=== PATIENT | female | born 1985 | race Caucasian/White ===

== ENCOUNTER 2022-11-11 13:00 | Emergency (ER) | payer MEDICARE, SELFPAY ==
[2022-11-11] VITALS (9 sets, daily range): BP systolic 120–155; BP diastolic 65–84; PULSE 54–69; RESP 16–18; TEMP 37.2; O2SAT 98–100
--- NOTE | 2022-11-11 13:36 | ED_ITS ---
HPI - Nausea/Vomiting/Diarrhea General Chief complaint: Nausea/Vomiting/Diarrhea Stated complaint: Nausea/Vomiting Time Seen by Provider: 11/11/22 13:11 Source: patient and EMS Mode of arrival: EMS History of Present Illness HPI Narrative: Patient is a 37-year-old female who recently had a cross-country trip. She states that when she returned home she started have acute episodes of vomiting. No diarrhea. Is unable to tolerate anything by mouth. This is going on for the past 24-48 hours. No fevers. Does have some abdominal pain but this is associated with the vomiting. No skin rashes. No fevers. She did receive a L of fluid and Zofran by EMS prior to arrival. States the Zofran did help her symptoms somewhat. Related Data Previous Rx's Medication Instructions Recorded ondansetron 4 mg disintegrating 4 mg PO Q6H PRN nausea and 11/11/22 tablet vomiting #14 tabs Allergies Allergy/AdvReac Type Severity Reaction Status Date / Time latex Allergy Intermediate Hives Verified 11/11/22 13:20 Review of Systems Constitutional Constitutional: Reports system reviewed and no additional complaints, except as documented Gastrointestinal Gastrointestinal: Reports system reviewed and no additional complaints, except as documented Genitourinary Genitourinary: Reports system reviewed and no additional complaints, except as documented Integumentary/Breasts Skin/Breast: Reports system reviewed and no additional complaints, except as documented Patient History Social History Smoking Status: Current every day smoker Smoking Status: Current every day smoker tobacco type: cigarettes alcohol intake frequency: other Substance Use Type: does not use Exam Initial Vital Signs Initial Vital Signs: Vital Signs Temperature 99.0 F 11/11/22 13:08 Pulse Rate 57 L 11/11/22 13:08 Respiratory Rate 16 11/11/22 13:08 Blood Pressure 140/68 11/11/22 13:08 Pulse Oximetry 98 11/11/22 13:08 Oxygen Delivery Method Room Air 11/11/22 13:08 HENMT Head: normal to inspection and normocephalic Resp Effort & Inspection: normal respiratory effort Cardio Rate: regular rate GI Inspection: non-distended Neuro General: patient alert, patient awake and moves all extremities Course Orders Ordered: ED Orders 11/11/22 13:17 Consult to [employer] Stat Discontinued Medications Sodium Chloride (Normal Saline 0.9%) 1,000 mls @ 1,000 mls/hr IV BOLUS ONE Stop: 11/11/22 14:10 Last Admin: 11/11/22 13:51 Dose: 1,000 mls/hr Documented By: NADJA Metoclopramide HCl (Metoclopramide 10 Mg/2 Ml Inj) 10 mg IV NOW ONE Stop: 11/11/22 13:36 Last Admin: 11/11/22 13:52 Dose: 10 mg Documented By: NADJA Ondansetron HCl (Ondansetron 4 Mg/2 Ml Inj) 4 mg IV NOW ONE Stop: 11/11/22 13:12 Last Admin: 11/11/22 14:56 Dose: Not Given Documented By: SAM Vital Signs Vital signs: Vital Signs - 8 hr 11/11/22 13:08 11/11/22 13:12 11/11/22 13:30 Temperature 99.0 F Pulse Rate 57 L 57 L 56 L Respiratory Rate 16 18 18 Blood Pressure 140/68 140/68 142/77 H Pulse Oximetry 98 98 98 Oxygen Delivery Method Room Air Room Air 11/11/22 14:00 11/11/22 14:21 11/11/22 14:30 Temperature Pulse Rate 54 L 57 L 54 L Respiratory Rate 18 18 18 Blood Pressure 136/76 138/82 155/84 H Pulse Oximetry 98 99 100 Oxygen Delivery Method Room Air Room Air MDM - Nausea/Vomiting/Diarrhea Lab Data Labs: Point of Care Testing Test Results Negative Urine Dip Bedside Urine Glucose Negative Bedside Urine Bilirubin + 1 Bedside Urine Ketone ++ 40 Urine Specific [place] 1.025 Bedside Urine Occult Blood + Bedside Urine pH 6.0 Bedside Urine Protein + 30 Bedside Urine Urobilinogen - Negative Bedside Urine Nitrite - Negative Bedside Urine Leukocytes +/- 15 Esterase MDM Narrative Medical decision making narrative: Patient does have a benign abdomen with good bowel sounds. Soft abdomen. Was able to tolerate a small amount of liquids and was having some nausea but no vomiting. Received fluids. No urinary symptoms. No indication for radiologic studies. test is negative. Will discharge patient home with symptom treatment for her nausea. She was given return precautions. She expressed understanding and agreement. Discharge Plan Departure Patient Disposition: Home Clinical Impression: Nausea and vomiting Instructions: Nausea and Vomiting-Adult Activity Restrictions/Additional Instructions: Use the nausea medication as needed. Be sure that you were trying to increase your fluid intake by drinking small amounts more frequently. Also recommend a bland diet. Return to the emergency department for new symptoms. Prescriptions: New ondansetron 4 mg tablet,disintegrating 4 mg PO Q6H PRN (Reason: nausea and vomiting) Qty: 14 0RF Referrals: Miscellaneous,Doctor, MD [Primary Care Provider] - Stand Alone Forms: Patient Portal/API
[2022-11-11] MEDS: SODIUM CHLORIDE 0.9% 1,000 ML 1000 ML IV (13:51)
[2022-11-11] MEDS: METOCLOPRAMIDE 10 MG/2 ML INJ IV (13:52)
== END 2022-11-11 16:03 | disposition home or self-care (01) ==
PROVIDERS: Emergency Provider Emergency Medicine
DX: R11.2 Nausea with vomiting, unspecified (principal)
CPT/HCPCS: 81003; 81025; 96361; 96374; 99283; 99284; J2765

== ENCOUNTER 2024-09-27 13:35 | Emergency (ER) | payer MEDICARE, SELFPAY ==
[2024-09-27 13:57] VITALS: BP 164/84; PULSE 70; RESP 18; TEMP 36.5; O2SAT 100
[2024-09-27] MEDS: HYDROCODONE/ACET 5/325 TABLET 1 TAB PO (14:11)
--- NOTE | 2024-09-27 14:14 | ED_ITS ---
<Statement entered by Kevin Anthony, DO - 09/27/24 17:48> Co-sign statement: I was available for consultation during this patient's emergency department visit. Discharge is signed by myself for administrative purposes only. I do not have direct contact with this patient during this visit. They were seen independently by the [facility]. HPI - Dental/Oral General Chief complaint: Dental/Oral Stated complaint: Mouth infection post 2 teeth abstraction; in pain Time Seen by Provider: 09/27/24 13:45 Source: patient Mode of arrival: Ambulatory History of Present Illness HPI Narrative: Ms. Zuniga is a pleasant 39-year-old female with no significant past medical history who presents to the emergency department for left lower dental pain after having recent extractions. Patient was started on Augmentin last Saturday for left lower dental pain and infection. She followed up with her dentist for extractions however there was difficulty obtaining full nerve block so she had to come back to the dentist on Saturday, she was still unable to be fully numbed but she decided to proceed with the extractions any way. Patient has since ran out of hydrocodone-acetaminophen pain medication and is struggling to control the pain despite taking 800 mg of ibuprofen and a 1000 mg of Tylenol. She is concerned that the Augmentin may not be working, states that in the past she had better results with clindamycin. She denies fevers, chills, nausea, vomiting, difficulty swallowing or opening and closing the mouth. She works at a [employer] and attempted to go to work yesterday however had a difficult time due to the pain and work is requesting that she has a doctor's note. Related Data Previous Rx's ?Medication ?Instructions ?Recorded ondansetron 4 mg disintegrating 4 mg PO Q6H PRN nausea and 11/11/22 tablet vomiting #14 tabs clindamycin HCl 150 mg capsule 450 mg (3 x 150 mg) PO TID 10 days 09/27/24 #90 caps hydrocodone 5 mg-acetaminophen 325 1 tab PO Q4-6H PRN pain #12 tabs 09/27/24 mg tablet Allergies Allergy/AdvReac Type Severity Reaction Status Date / Time latex Allergy Intermediate Hives Verified 11/11/22 13:20 Review of Systems Review of Systems ROS Unobtainable: All systems reviewed & are unremarkable except as noted in HPI and below Patient History tobacco type: cigarettes alcohol intake frequency: other Exam Narrative Exam Narrative: GENERAL: 39 year old patient appears stated age. Well-developed patient, in no acute distress. HEAD: Atraumatic. Normocephalic. No facial swelling. EYES: Extraocular motions intact. No scleral icterus. No injection or drainage. ENT: Prior extraction of left lower molars (19&20) appear to be well healing, with no fluctuance or drainage. There is tenderness to palpation of the surrounding gingiva with Mild surrounding erythema and edema. Posterior oropharynx is patent, floor of the mouth is soft, submandibular region is soft with no tenderness, no difficulty opening or closing the jaw. NECK: Trachea midline. Cervical ROM intact. No palpable cervical lymphadenopathy. CARDIOVASCULAR: Regular rate RESPIRATORY: ?Nonlabored respirations. ?Speaking in clear, full sentences. NEURO: AOx3. ?Clear speech. ?Moves all 4 extremities appropriately. SKIN: No rash or erythema of visible areas Initial Vital Signs Initial Vital Signs: Vital Signs Temperature 97.7 F 09/27/24 13:57 Pulse Rate 70 09/27/24 13:57 Respiratory Rate 18 09/27/24 13:57 Blood Pressure 164/84 H 09/27/24 13:57 Pulse Oximetry 100 09/27/24 13:57 Oxygen Delivery Method Room Air 09/27/24 13:57 Course Orders Ordered: Discontinued Medications Hydrocodone Bitart/Acetaminophen (Hydrocodone/Acet 5/325 Tablet) 1 tab PO NOW ONE Stop: 09/27/24 14:08 Last Admin: 09/27/24 14:11 Dose: 1 tab Documented By: GW Vital Signs Vital signs: Vital Signs - 8 hr 09/27/24 13:57 Temperature 97.7 F Pulse Rate 70 Respiratory Rate 18 Blood Pressure 164/84 H Pulse Oximetry 100 Oxygen Delivery Method Room Air [facility] - Dental/Oral Medical Records Attestation: I reviewed the patient's medical records. [facility] Narrative Medical decision making narrative: 39-year-old female with no significant past medical history who presents to the emergency department for left lower dental pain after having recent extractions. Differential diagnosis includes but not limited to post extraction dental pain, dental infection, abscess, dry socket, pericarditis, gingivitis, osteomyelitis, etc. On exam the patient is in no acute distress, nontoxic appearing, vital signs appropriate with the exception of mildly elevated blood pressure. Patient has been taking Augmentin since last Saturday for left lower dental infection, recent extraction of 2 molars on Saturday with persistent pain, patient ran out of pain medication and has been using full strength ibuprofen and Tylenol without control of pain. Patient states in the past she had improvement with clindamycin versus augmented, I am agreeable to changing the antibiotic regimen, we will also prescribe 3 additional days of pain medication until patient can get in with her dentist early this week for further evaluation. Her oropharynx is patent, she has no facial or submandibular swelling, no palpable abscess or any drainage. She is afebrile and not tachycardic. Prescriptions of clindamycin and hydrocodone sent to her pharmacy, we also discussed Peridex mouthwash, ibuprofen and acetaminophen dosing. Discussed ED return precautions. Patient and her family member verbalized understanding of all information and are happy with this plan. She is stable for discharge home. Discharge Plan Departure Patient Disposition: Home Clinical Impression: Pain, dental Instructions: DI for Dental Pain Activity Restrictions/Additional Instructions: Dear Ms. Zuniga, Thank you for coming to the emergency department. Today you were evaluated for left lower dental pain after having extractions on Saturday. We have decided to stop your Augmentin, and instead start taking clindamycin antibiotic. I would also like you to use Peridex mouthwash twice a day. You have been prescribed hydrocodone-acetaminophen to help with severe pain. You can take an additional 675 mg of Tylenol with this medication in addition to 400-600mg of ibuprofen. Please take Ibuprofen (Motrin/Advil) or Acetaminophen (Tylenol) for pain. These are available over the counter. You may take Ibuprofen 600 mg every 6-8 hours with food for pain. You may also take Acetaminophen 650 mg every 4-6 hours for pain. Do not exceed 3000 mg of Tylenol a day as this can cause liver damage. Do not drink alcohol with either of these medications. Please call and follow up with your dentist tomorrow for further management. Antibiotics kill good bacteria in the gut, so please incorporate a probiotic or probiotic yogurt such as Activia into the diet while taking antibiotics. You have been prescribed a short course of narcotic medications. These are potentially dangerous and addictive medications that should be used carefully. While on these medications you cannot drive or operate heavy machinery. Additionally, you cannot sign legal documents or perform any duties such as this. Many people get constipated on narcotic medications so it would be advisable to discuss stool softeners with the pharmacist when you strip picker your prescription. Please understand that we cannot provide further refills of narcotics or controlled substances through the ED and your pain management will need to be through your Primary Care Provider Please follow up with your primary care doctor within the next 2-3 days for ER follow-up. (If you do not have a PCP you can call [phone]. ?to schedule an appointment with an [facility] Primary Care Provider) IF YOU DEVELOP ANY NEW OR WORSENING SYMPTOMS, RETURN TO THE ER! Please read the attached instructions, they highlight more specific treatments and interventions for you at home. Thank you for letting me participate in your care, Violette Lassiter PA-C Prescriptions: New clindamycin HCl 150 mg capsule 450 mg PO TID 10 Days Qty: 90 0RF hydrocodone-acetaminophen 5-325 mg tablet 1 tab PO Q4-6H PRN (Reason: pain) Qty: 12 0RF No Action ondansetron 4 mg tablet,disintegrating 4 mg PO Q6H PRN (Reason: nausea and vomiting) Qty: 14 0RF Referrals: Miscellaneous,Doctor, MD [Primary Care Provider, Medical] Stand Alone Forms: Patient Portal/API, Work Release Note
== END 2024-09-27 14:20 | disposition home or self-care (01) ==
PROVIDERS: Emergency Provider Physician Assistant
DX: K08.89 Other specified disorders of teeth and supporting structures (principal)
CPT/HCPCS: 99283

== ENCOUNTER 2025-03-14 13:15 | Emergency (ER) | payer MEDICARE, SELFPAY ==
[2025-03-14 13:36] VITALS: BP 135/70; PULSE 83; RESP 18; TEMP 36.6; O2SAT 100; BMI 25.8
--- NOTE | 2025-03-14 13:39 | ED_ITS ---
HPI - Dental/Oral General Chief complaint: Dental/Oral Stated complaint: tooth infection Time Seen by Provider: 03/14/25 13:36 History of Present Illness HPI Narrative: 39-year-old woman with no significant medical issues comes in complaining of pain in the right upper quadrant 1st premolar has been bothering her for almost 2 weeks now. She was seen at [facility] treated with amoxicillin and a couple of tablets of oxycodone which did help. She had an appointment with [facility] but they were unable to see her until she paid a previous bill. She now has appointment at the [facility] but is a month away. Now that the antibiotics have been completed the pain is increasing again. No fevers, chills, nausea or vomiting. No obvious abscess or discharge Related Data Previous Rx's ?Medication ?Instructions ?Recorded ondansetron 4 mg disintegrating 4 mg PO Q6H PRN nausea and 11/11/22 tablet vomiting #14 tabs hydrocodone 5 mg-acetaminophen 325 1 tab PO Q4-6H PRN pain #12 tabs 09/27/24 mg tablet amoxicillin 500 mg capsule 500 mg PO TID #21 caps 10/30 oxycodone 5 mg tablet 5 mg PO Q6H PRN pain #10 tab s 03/14/25 Allergies Allergy/AdvReac Type Severity Reaction Status Date / Time latex Allergy Intermediate Hives Verified 03/14/25 13:40 Review of Systems Constitutional Comments: Pertinent positive and negative findings as per HPI Patient History tobacco type: cigarettes alcohol intake frequency: other Exam Narrative Exam Narrative: General: Alert appropriate in no acute distress HEENT: First molar has already been pull. Teeth and gums actually look like they are fairly well cared for there is definitely some decay around the gumline with a tooth involved, right 1st premolar. No obvious abscess or drainage Respiratory: Able to speak in full sentences, no obvious respiratory distress Skin: No obvious rashes, warm and dry Neurologic: Grossly intact no obvious asymmetries or abnormalities Psych: appropriate insight and affect, cooperative MDM - Dental/Oral MDM Narrative Medical decision making narrative: 39-year-old woman with right dental pain. The tooth does look like there is some DKA, no obvious abscess, she did improve with amoxicillin and worse when it was discontinued. Her dental appointment for definitive treatment as scheduled in April. We discussed options and will go for additional amoxicillin as well as pain medicine. There was no indication for additional imaging or hospitalization she is safely discharge Discharge Plan Departure Patient Disposition: Home Clinical Impression: Dental infection Activity Restrictions/Additional Instructions: Thank you for coming in today I am sorry that you are tooth is hurting, tooth pain can be so frustrating and painful. I am glad you have an appointment already set up, I know it is month away but please make sure you keep this appointment I have given you a prescription for amoxicillin as well as 10 additional oxycodone to use for pain control Using 400 mg of ibuprofen (2 [id number] pills) and 1 Tylenol every 6 hours can be very helpful in controlling pain. You can add the oxycodone to this combination If you find that you are getting worse or develop any new symptoms, please feel free to return to the emergency department for further evaluation. Prescriptions were sent to [facility] in [place] Prescriptions: New amoxicillin 500 mg capsule 500 mg PO TID Qty: 21 0RF oxycodone 5 mg tablet 5 mg PO Q6H PRN (Reason: pain) Qty: 10 0RF No Action ondansetron 4 mg tablet,disintegrating 4 mg PO Q6H PRN (Reason: nausea and vomiting) Qty: 14 0RF hydrocodone-acetaminophen 5-325 mg tablet 1 tab PO Q4-6H PRN (Reason: pain) Qty: 12 0RF Referrals: Trish Jasso ARNP [Primary Care Provider, Geriatrics] Stand Alone Forms: Patient Portal/API
== END 2025-03-14 13:50 | disposition home or self-care (01) ==
PROVIDERS: Emergency Provider Emergency Medicine; PCP Nurse Practitioner Gerontology
DX: K04.7 Periapical abscess without sinus (principal)
CPT/HCPCS: 99281